=== PATIENT | female | born 1995 | race African-American/Black ===

== ENCOUNTER 2018-06-23 10:39 | Emergency (ER) | payer MEDICAID ==
[~2018-06-23] VITALS: Ht 170.2 cm; Wt 63.5 kg
--- NOTE | 2018-06-23 11:01 | Emergency Room Report ---
History of Present Illness General Chief Complaint: Complications Source: Patient Present Illness HPI Patient presents with complaints of possible miscarriage Reports that about 2 weeks ago she was approximately 4 weeks Told by her OB physician that there was not able to see anything She is Her child is 18 months She had for this delivery 2 days ago began having vaginal spotting Yesterday as well small amount of spotting however last night approximately 1: 00 patient reports increased lower abdominal cramping followed by large clots that were past Denies any fevers chills denies any lightheadedness Allergies: Coded Allergies: No Known Allergies (Unverified , 06/23/18) Patient History Past Medical History: see triage record Pertinent Family History: none Last Menstrual Period: 04/19/18 Now: Yes : 3 Para: 1 Reviewed Nursing Documentation: PMH: Agreed; PSxH: Agreed Nursing Documentation-PMH Past Medical History: No History, Except For Hx Asthma: Yes Review of Systems All Other Systems: negative except mentioned in HPI Physical Exam Vital Signs Date Time Temp Pulse Resp B/P (MAP) Pulse Ox O2 Delivery O2 Flow Rate FiO2 06/23/18 10:49 98.0 95 16 114/68 95 Room Air 98.1 Sp02 EP Interpretation: reviewed, normal General Appearance: well appearing, no apparent distress Head: normocephalic, atraumatic Eyes: bilateral eye PERRL, bilateral eye EOMI ENT: hearing grossly normal, normal pharynx, TMs + canals normal, uvula midline Neck: full range of motion, supple, no meningismus, no bony tend Respiratory: lungs clear, normal breath sounds, no rhonchi, no respiratory distress, no retraction, no accessory muscle use Cardiovascular #1: normal peripheral pulses, regular rate, rhythm, no edema, no gallop, no JVD, no murmur Gastrointestinal: normal bowel sounds, non tender, soft, no mass, no organomegaly, non-distended, no guarding, no hernia, no pulsatile mass, no rebound Genitourinary: no CVA tenderness Musculoskeletal: normal inspection Neurologic: oriented x3, responsive, employment director III-XII nml as tested, motor strength/ tone normal, sensory intact Psychiatric: mood/affect normal Skin: normal color, no rash, warm/dry, palpation normal Lymphatic: normal inspection, no adenopathy Medical Decision Making Diagnostic Impression: Primary Impression: Threatened ER Course With the patient's history and examination, multiple differentials considered, including but not limited to , ectopic , ovarian torsion, gastritis, cholecystitis, pancreatitis, appendicitis Patient's beta Quant level is at 15,000 Ultrasound does show abnormal findings per radiology with question of possible inevitable miscarriage At this time patient is diagnosed with threatened miscarriage Will require repeat evaluation and hormone level examination Patient was discussed with the likelihood of having increased vaginal bleeding and passing clots She has any discomfort right headedness or other concerns she can return to the ER more emergently otherwise follow-up with [facility] next week is appropriate Labs Test 06/23/18 10:45 Urine Color Red Urine Appearance Cloudy Urine pH 7 (4.5-8.0) Urine Specific [place] 1.015 (1.005-1.035) Urine Protein 4+ (NEGATIVE) Urine Glucose (UA) Negative (NEGATIVE) Urine Ketones Negative (NEGATIVE) Urine Blood 5+ (NEGATIVE) Urine Nitrite Negative (NEGATIVE) Urine Bilirubin Negative (NEGATIVE) Urine Urobilinogen Normal MG/DL (0.0-1.0) Urine Leukocyte Esterase 2+ (NEGATIVE) Urine RBC Tntc /HPF (0 - 2) Urine WBC 5-10 /HPF (0 - 2) Urine Squamous Epithelial Cells Occasional /LPF Urine Bacteria Few /HPF (NONE) Human Chorionic Gonadotropin, Quant 50053 mIU/mL (1-6) CT/MRI/US Diagnostic Results CT/MRI/US Diagnostic Results : Impression pelvic ultrasound:Impression: Intrauterine gestational sac, demonstrating yolk sac, amnion, but only equivocal pole, debris within the extrahepatic portion of the sac and no heart activity. Findings are concerning for nonviable intrauterine . Recommend correlation with serial beta hCGs and clinical findings Small amount of free fluid in the left adnexal region. Presumed physiologic, although small amount of debris may indicate a small amount of hemorrhage Left adnexal varicosities. Correlate with any clinical symptoms of pelvic congestion Last Vital Signs Date Time Temp Pulse Resp B/P (MAP) Pulse Ox O2 Delivery O2 Flow Rate FiO2 06/23/18 10:49 98.0 95 16 114/68 95 Room Air 98.1 Status: improved Disposition: HOME, SELF-CARE Condition: Improved Additional Instructions: Patient is provided with the discharge instructions notified to follow up with primary doctor in the next 2-3 days otherwise return to the er with any worsening symptoms. Please note that this report is being documented using DRAGON technology. This can lead to erroneous entry secondary to incorrect interpretation by the dictating instrument. Gerald Grossman DO Jun 23, 2018 11:01
[2018-06-23 11:41] LABS: BILIRUBIN, URINE NEGATIVE (NEGATIVE); GLUCOSE, URINE (UA) NEGATIVE (NEGATIVE); KETONES,URINE NEGATIVE (NEGATIVE); LEUKOCYTE ESTERASE ,URINE 2+ (NEGATIVE); NITRITE,URINE NEGATIVE (NEGATIVE); PH,URINE 7 (4.5-8.0); PROTEIN,URINE 4+ (NEGATIVE); UROBILINOGEN,URINE NORMAL MG/DL (0.0-1.0)
[2018-06-23 11:42] LABS: APPEARANCE,URINE CLOUDY; COLOR,URINE RED
--- NOTE | 2018-06-23 12:31 | Diagnostic Imaging Report ---
Indication: Positive test, vaginal bleeding, cramping Technique: Transabdominal and transvaginal images of the pelvis. Doppler interrogation of the bilateral ovaries Comparison: none Findings: Transabdominal images are somewhat limited due to lack of bladder distention. Uterus measures 7.9 cm length by 4 cm AP. Within the endometrium, there is a gestational sac. This demonstrates a yolk sac, amnion, probably a questionable pole. If real, pole measures 4 mm in length, corresponding to estimated gestational age of 6 weeks one day. Debris is seen peripheral to the amnion. No heart activity is demonstrated. No myometrial abnormality. Free fluid with debris is seen in the left adnexal region. Right ovary measures 27 mm in length. Left ovary measures 38 mm length. Both ovaries demonstrate normal blood flow. Venous varicosities are seen in the left adnexal region. Impression: Intrauterine gestational sac, demonstrating yolk sac, amnion, but only equivocal pole, debris within the extrahepatic portion of the sac and no heart activity. Findings are concerning for nonviable intrauterine . Recommend correlation with serial beta hCGs and clinical findings Small amount of free fluid in the left adnexal region. Presumed physiologic, although small amount of debris may indicate a small amount of hemorrhage Left adnexal varicosities. Correlate with any clinical symptoms of pelvic congestion Findings discussed by phone with Dr. Grossman at the time of interpretation
[2018-06-23 12:43] VITALS: BP 111/74
== END 2018-06-23 12:43 | disposition home or self-care (01) ==
LOC: EMR 11:00
DX: O20.0 Threatened abortion (principal); Z3A.01 Less than 8 weeks gestation of pregnancy; O99.511 Diseases of the respiratory system complicating pregnancy, first trimester; J45.909 Unspecified asthma, uncomplicated
CPT/HCPCS: 36415; 76801; 81003; 84702; 86900; 86901; 99284